=== PATIENT | male | born 1980 | race Hispanic/Latino ===

== ENCOUNTER 2018-08-25 09:26 | Emergency (ER) | payer BC | END 2018-08-25 10:25 | disposition home or self-care (01) | LOC: EDH 09:26 | DX: F19.10 Other psychoactive substance abuse, uncomplicated (principal); F10.20 Alcohol dependence, uncomplicated; F41.9 Anxiety disorder, unspecified; G47.00 Insomnia, unspecified; Z21 Asymptomatic human immunodeficiency virus [HIV] infection status; Z72.0 Tobacco use; Y90.9 Presence of alcohol in blood, level not specified | CPT/HCPCS: 99281 ==